=== PATIENT | female | born 1995 | race Caucasian/White ===

== ENCOUNTER 2020-10-21 14:57 | Emergency (ER) | payer SELFPAY ==
[~2020-10-21] VITALS: Ht 157.5 cm; Wt 47.6 kg
[2020-10-21] MEDS ORDERED: AZITHROMYCIN 250 MG TABLET PO ONE (15:15)
[2020-10-21] MEDS ORDERED: AZIT250T PO (15:22)
[2020-10-21] MEDS ORDERED: AZITHROMYCIN 250 MG TABLET ONE (15:23)
--- NOTE | 2020-10-21 15:24 | NUR ---
Patient discharged to home in stable condition. Written and verbal after care instructions given. Patient verbalizes understanding of instructions. Stressed follow up or return to ER for worsening s/s.
[2020-10-21 15:25] VITALS: BP 104/75
== END 2020-10-21 15:25 | disposition home or self-care (01) ==
LOC: ER 14:57
DX: J02.9 Acute pharyngitis, unspecified (principal)
CPT/HCPCS: A4663; Q0144